=== PATIENT | female | born 1975 | race Caucasian/White ===

== ENCOUNTER 2022-12-12 12:57 | Outpatient (CLI) | payer OTHER, SELFPAY | END 2022-12-12 12:58 | disposition home or self-care (01) | PROVIDERS: Visit Provider Family Medicine | DX: Z01.818 Encounter for other preprocedural examination (principal) | CPT/HCPCS: 80048; 85025 ==

== ENCOUNTER 2022-12-14 07:58 | Day surgery (SDC) | payer OTHER, SELFPAY ==
[2022-12-14] VITALS (7 sets, daily range): BP systolic 111–128; BP diastolic 70–88; PULSE 67–72; RESP 16; TEMP 36.4–36.6; O2SAT 97–100; BMI 23.9
[2022-12-14] MEDS: CEFAZOLIN 2 GM in 0.9 % SODIUM CHLORIDE Mini-bag 100 ML IVPB (07:54)
[2022-12-14] MEDS: LACTATED RINGERS 1000 ML 1,000 ML 100 ML IV ×2 (08:20→12:10)
[2022-12-14 09:04] LABS: Ur HCG Qualitative* Negative (Negative)
[2022-12-14] MEDS: SODIUM CHLORIDE 0.9 % (FLUSH) 10 ML SYRINGE IVF (09:15)
[2022-12-14] MEDS: fentaNYL 100 MCG/2 ML inj IVP (10:22)
[2022-12-14] MEDS: MIDAZOLAM HCL 1 MG/ML inj IVP (10:22)
--- NOTE | 2022-12-14 10:25 | SUR.PREOP ---
TIME?OUT:?1020 PT/RN/MDA?VERIFICATION?OF?SURGICAL?SITE,?PROCEDURE,?AND?CONSENT OBTAINED?PRIOR?TO?INVASIVE?PROCEDURE.
--- NOTE | 2022-12-14 10:38 | W.PM.NB ---
Nerve Block Nerve Block Time Seen by Provider: 10:30 Date Seen: 12/14/22 Type of block requested by surgeon for post-operative analgesia: axillary Side: left Time out performed: Yes Verification of patient name: Yes Verification of date of : Yes Site marking: site marked Name of person performing procedure: Zach Daysi Continuous monitoring Was continuous monitoring of O2 sat, B/P, loss prevention agent, recorded every 15 minutes?: Yes Procedure Checklist: sterile prep, needles and gloves Ultrasound guided. Images saved: Yes Medications given in 5ml increments after negative aspiration: Ropivicaine %: 0.5 mL: 20 Needle gauge: 20 Decadron (mg): 10 Precedex (mcg): 25 Patient tolerated procedure well: Yes Additional comments: Injected in 5mL increments after negative aspiration Block Charges Block Charge (with Pro Fee): Axillary Nerve Use of Ultrasound Machine for Block: Yes- US Guidance/pain block
--- NOTE | 2022-12-14 10:45 | CRLHL7_ITS ---
For Patients: As a result of the Cures Act, medical imaging exams and procedure reports are released immediately into your electronic medical record. You may view this report before your referring provider. If you have questions, please contact your health care provider. Indication: ORIF left distal radius. Technique: Two spot fluoroscopic views of the left wrist. Comparison: None Findings: Ventral plate and screw fixation hardware of distal radius fracture appears appropriately positioned. Near anatomic alignment of fracture fragments status post reduction. Fluoroscopy time: 8.1 seconds. Radiation dose: 0.14 mGy. Impression: Fluoroscopic guidance for left wrist ORIF. Dictated by Javi Shields MD @ 12/16/2022 7:54:30 PM (Electronically Signed)
--- NOTE | 2022-12-14 12:45 | W.PM.H&PU ---
History & Physical Update History & Physical Update H&P Reviewed and patient assessed: No changes noted
--- NOTE | 2022-12-14 12:45 | PM.ORPRC ---
Procedure Note Date of procedure: 12/14/22 Procedure: PREOPERATIVE DIAGNOSES: 1. Left distal radius fracture intraarticular with comminution and dorsal angulation/displacement - unstable, 3+ parts POSTOPERATIVE DIAGNOSES: 1. Left distal radius fracture intraarticular with comminution and dorsal angulation/displacement - unstable, 3+ parts NAME OF OPERATION: 1. Left distal radius open reduction with internal fixation of intraarticular fracture (3+ parts) SURGEON: Sky Oconnor MD BIOTECH PRODUCTION SPECIALIST: Guille Bradley - Of note, an assistant manager pt was critical for this case to aide in patient positioning, limb manipulation, tissue retraction, closure, and splinting. ANESTHESIA: Supraclavicular block EBL: 10ml IMPLANTS: Synthes dual column volar locking plate. 2.4mm distal locking pegs and 2.7mm proximal nonlocking & 2.4mm locking screws. TOURNIQUET: 30 minutes at 250 torr forearm location. INDICATIONS: The patient is a pleasant, 47 yo Female who sustained a left wrist injury after a fall. They had difficulty with use of the extremity and deformity. Workup included xrays which revealed an unstable fracture. Given these findings, surgery was recommended to stablize the fracture. FINDINGS: Closed, radius fracture intraarticular with comminution and dorsal angulation/displacement - unstable, 3+ parts. PROCEDURE: Following a thorough discussion of risks, benefits, and alternatives, consent was obtained and the operative extremity was marked. The patient was brought to the operating room and placed supine on the operating table. Induction of anesthesia was achieved. Appropriate time out was performed identifying proper patient, site and procedure. 1 gram of iv Ancef was administered within 1 hour of incision preoperatively. The left upper extremity was prepped and draped in the appropriate sterile fashion using ChloraPrep prep. The limb was exsanguinated and the tourniquet inflated. A longitudinal incision was made overlying the FCR tendon. Sharp incision through skin and subcutaneous tissue allowed identification of the FCR tendon. The superficial sheath was sharply divided, the tendon retracted ulnarly, and the deep fascial sheath also released. The FPL was retracted ulnarly and the pronator quadratus was sharply released from the radial border of the radius and subperiosteally elevated. The fracture was encountered and cleared of interposed periosteum / fracture hematoma. A reduction was performed and the appropriate plate selected. Temporary stabilization allowed C-arm fluoroscopy to confirm proper fracture reduction and plate positioning. The oblong hole was filled with a nonlocking screw followed by distal locking pegs along the ulnar facet initially. After stable in this, we identified intra-articular split that was slightly displaced. We were able to use a reduction clamp and compress this against the now stable ulnar column. More distal locking screws were engaged within the scaphoid fragment and now allowed it too to be stable. For the proximal locking screws were placed and the distal holes were also completed. C-arm fluoroscopic imaging confirmed the plate to be extra-articular, stabilized along the ulnar column, and screws to be extra-articular as well. Reduction was felt to be appropriate. At this stage, the wound was thoroughly irrigated with normal saline. Closure performed with 0 Vicryl for the pronator quadratus, followed by deflation of the tourniquet. All major bleeding points were cauterized. Closure was then completed with 3-0 Vicryl for the subcutaneous, and 4-0 statafix for subcuticular closure. Dressings were applied along with a volar/dorsal splint. The patient was awoken from anesthesia and transferred to PACU in stable condition. PLAN: 1. Elevate operative extremity. 2. Ice, acetominphen or ibuprofen PRN. 3. Oxycodone for pain as needed. 4. Follow up with PA visit in 10-16 days for wound check and splint removal.
--- NOTE | 2022-12-14 13:19 | W.ANESCHARGE ---
Anesthesia Charges Start Date/Time Anesthesia Start Date: 12/14/22 Anesthesia Start Time: 11:48 Stop Date/Time Anesthesia Stop Date: 12/14/22 Anesthesia Stop Time: 13:10
[2022-12-14] MEDS: IBUPROFEN 200 MG TABLET 400 MG PO (13:40)
[2022-12-14] MEDS: OxyCODONE/APAP 5-325 TABLET PO (13:40)
== END 2022-12-14 14:40 | disposition home or self-care (01) ==
PROVIDERS: PCP Family Medicine; Visit Provider Orthopaedic Surgery Sports Medicine
PROC: (CPT 25575; principal; 2022-12-14 10:45)
DX: S52.571A Other intraarticular fracture of lower end of right radius, initial encounter for closed fracture (principal); G89.18 Other acute postprocedural pain
CPT/HCPCS: 25609; 01830; 64417; 73110; 76000; 76942; 81025; A4580; A9270; C1713; J0690; J1100; J2250; J2405; J2704; J2795; J3010; J3490; J7120